=== PATIENT | male | born 1950 | race Native Hawaiian/Other Pacific Islander ===

== ENCOUNTER 2016-10-02 09:42 | Emergency (ER) | payer OTHER ==
[~2016-10-02] VITALS: Ht 175.3 cm; Wt 76.2 kg
[2016-10-02 10:50] LABS: PLATELET COUNT 265 K/uL (142-355)
[2016-10-02 10:55] LABS: POTASSIUM 4.2 mmol/L (3.6-5.2); SODIUM 136 mmol/L (136-145)
== END 2016-10-02 11:20 | disposition home or self-care (01) ==
LOC: ED 09:42
DX: E11.9 Type 2 diabetes mellitus without complications (principal); D72.829 Elevated white blood cell count, unspecified
CPT/HCPCS: 36415; 80053; 81000; 82150; 83690; 85027; 99283

== ENCOUNTER 2018-03-30 10:01 | Emergency (ER) | payer OTHER ==
[~2018-03-30] VITALS: Ht 175.3 cm; Wt 72.1 kg
[~2018-03-30 10:01] MED LIST: B-121000 MC2 OR; CYCL10TA35 PO; GLIP10TA55 PO; ISOS30TA17 PO; OMEPRAZOLE20 M1 OR; SERT100T PO; SLO-NIACIN500 MG OR; ZIPR80CA PO; [UNRECOGNIZED DRUG - OTHER] OR
[2018-03-30 11:33] LABS: PLATELET COUNT 247 K/uL (142-355)
[2018-03-30 11:43] LABS: POTASSIUM 4.7 mmol/L (3.6-5.2)
[2018-03-30 13:05] VITALS: BP 118/78; TEMP 98
== END 2018-03-30 13:05 | disposition home or self-care (01) ==
LOC: ED 10:01
DX: M54.32 Sciatica, left side (principal); M51.86 Other intervertebral disc disorders, lumbar region; R00.1 Bradycardia, unspecified; X50.0XXA Overexertion from strenuous movement or load, initial encounter
CPT/HCPCS: 36415; 80053; 81000; 82550; 84484; 85027; 93005; 96374; 99284; J1885

== ENCOUNTER 2018-10-22 18:00 | Emergency (ER) | payer OTHER ==
[~2018-10-22] VITALS: Ht 175.3 cm; Wt 72.1 kg
[2018-10-22 18:50] VITALS: BP 105/62; TEMP 97.5
== END 2018-10-22 21:30 | disposition home or self-care (01) ==
LOC: ED 18:00
DX: Z76.0 Encounter for issue of repeat prescription (principal)

== ENCOUNTER 2020-03-20 08:50 | Outpatient (CLI) | payer OTHER | END 2020-03-20 20:15 | disposition home or self-care (01) | LOC: MRI 08:50 | DX: M54.16 Radiculopathy, lumbar region (principal) ==